=== PATIENT | male | born 1990 | race Caucasian/White ===

== ENCOUNTER 2022-07-08 17:20 | Observation (INO) | payer OTHER, SELFPAY ==
[2022-07-08 17:27] VITALS: BP 134/88; PULSE 94; RESP 20; TEMP 36.5; O2SAT 96
[2022-07-08 18:08] LABS: Add Manual Diff / Slide Review NO; Basophils Absolute Auto 0 /uL (0-100); Basophils Percent Auto 0.8 % (0-2); Eosinophils Absolute Auto 100 /uL (0-450); Eosinophils Percent Auto 2.4 % (2-4); Hematocrit 44.1 % (41-53); Hemoglobin 15.8 g/dL (13.5-17.5); Lymphocytes Absolute Auto 1800 /uL (1100-4500); Lymphocytes Percent Auto 41.1 % (25-40); Mean Corpuscular HGB Conc 35.8 % (30-36); Mean Corpuscular Hemoglobin 29.2 PG (26-34); Mean Corpuscular Volume 81.4 fL (80-100); Monocytes Absolute Auto 300 /uL (0-900); Monocytes Percent Auto 7.5 % (3-14); Neutrophils Absolute Auto 2100 /uL (1500-7000); Neutrophils Percent Auto 48.2 % (50-75); Platelet Count 256 X10^3/uL (150-400); Red Blood Cell Count 5.41 X10^6/uL (4.5-5.9); Red Cell Distribution Width 12.7 % (11.6-14.8); White Blood Cell Count 4.4 X10^3/uL (4.5-11.0)
[2022-07-08 18:13] LABS: Alanine Aminotransferase 29 IU/L (<50); Albumin 4.5 g/dL (3.5-5.0); Albumin Globulin Ratio 1.3 (1.0-2.8); Alkaline Phosphatase 77 U/L (38-126); Aspartate Aminotransferase 40 IU/L (17-59); BUN Creatinine Ratio 21.5 (6-22); Bilirubin Total 0.6 mg/dL (0.2-1.3); Blood Urea Nitrogen 14 mg/dL (9-20); Carbon Dioxide 20 mmol/L (22-32); Chloride 93 mmol/L (98-107); Estimated Glomerular Filt Rate > 60 mL/min (>60); Globulin 3.4 g/dL (1.7-4.1); Lipase 379 U/L (23-300); Potassium 4.4 mmol/L (3.4-5.1); Sodium 131 mmol/L (137-145); Total Protein 7.9 g/dL (6.3-8.2)
[2022-07-08 18:16] LABS: Ketones (Beta-Hydroxybutyrate) 3.13 mmol/L (<0.27)
[2022-07-08 18:19] LABS: Bacteria Urine None Seen; Culture Indicated Urine Cult Not Indicated; RBC Urine None Seen (0-5/HPF); Squamous Epithelial Cell Urine None Seen (0-5/HPF); WBC Urine None Seen (0-5/HPF)
[2022-07-08 18:21] LABS: HEMOLYSIS 71 (0-50)
[2022-07-08 18:22] LABS: Glucose 618 mg/dL (70-100)
[2022-07-08 18:26] LABS: HCO3 VBG 26 mmol/L (23-28); Oxygen Saturation VBG 86 % (70-75); PCO2 VBG 44.9 mmHg (45-50); PO2 VBG 52 mmHg (35-45); Total CO2 VBG 28 mmol/L (24-29); pH VBG 7.38 (7.33-7.43)
[2022-07-08] MEDS: SODIUM CHLORIDE 0.9% 1,000 ML 1000 ML IV ×2 (19:20→22:14)
[2022-07-08 19:34] LABS: Hemoglobin A1C% w Est Avg Glu > 14.0 % (4.0-6.0)
[2022-07-08] MEDS: METFORMIN HCL 500 MG TABLET PO (19:42)
--- NOTE | 2022-07-08 20:14 | ED.RECABL ---
HPI - Recheck/Abnormal Lab/Rx General Chief Complaint: Recheck/Abnormal Lab/Rx Stated Complaint: sent by , lethargic, urine test was bad Time Seen by Provider: 07/08/22 17:47 Source: patient Mode of arrival: Ambulatory History of Present Illness HPI narrative: Patient sent here from the [employer] for evaluation of new onset diabetes. Patient states in the past year has had polyuria and polydipsia. No prior history of diabetes. No recent illness cough cold congestion fever chills. No altered mental status. No nausea vomiting diarrhea. No fever or chills. Related Data Home Medications Medication Instructions Recorded Confirmed pantoprazole 20 mg tablet,delayed 20 mg PO DAILY 07/09/22 07/09/22 release Allergies Allergy/AdvReac Type Severity Reaction Status Date / Time Tussin Allergy Uncoded 07/08/22 17:29 Review of Systems Review of Systems Narrative: GENERAL: Denies chills, fatigue, malaise, fever, sweats. HEENT: Denies sinus pain, ear pain, sore throat RESPIRATORY: Denies dyspnea, cough CARDIOVASCULAR: Denies chest pain, palpitations GASTROINTESTINAL: Denies nausea, vomiting, abdominal pain : Denies dysuria, frequency, hematuria, positive polyuria MUSCULOSKELETAL: denies muscle or bony pain SKIN: Denies rash, skin lesions NEUROLOGIC: Denies weakness, numbness ROS Unobtainable: All systems reviewed & are unremarkable except as noted in HPI and below Patient History Social History household members: none alcohol intake: current Exam Narrative Exam Narrative: GENERAL: in no distress, not toxic not dyspneic HEAD: Normocephalic. EYES: Pupils equal round No scleral icterus. ENT: Mucous membranes moist. NECK: Trachea midline. CARDIOVASCULAR: Regular rate and rhythm without murmurs RESPIRATORY: Clear to auscultation. Breath sounds equal bilaterally. No wheezes, rales, or rhonchi. GASTROINTESTINAL: Abdomen soft, non-tender EXTREMITIES: No gross deformities. BACK: No flank tenderness. NEURO: AOx4. Clear speech. No altered mental status. SKIN: Warm and dry PSYCH: Not anxious, is cooperative Initial Vital Signs Initial Vital Signs: Vital Signs Temperature 97.7 F 07/08/22 17:27 Pulse Rate 94 H 07/08/22 17:27 Respiratory Rate 20 07/08/22 17:27 Blood Pressure 134/88 07/08/22 17:27 Pulse Oximetry 96 07/08/22 17:27 Oxygen Delivery Method 07/08/22 17:27 Course Course Course Narrative: No new issues during course of stay Decision to Admit Date: 07/08/22 Decision to Admit time: 21:56 Orders Ordered: ED Orders 07/08/22 21:15 CMP [Comprehensive Metabolic Panel] Stat 07/08/22 22:11 Blood Culture Urgent 07/08/22 22:12 Education, smoking cessation ONGOING 07/08/22 22:22 Consult to Dietitian, Adult Routine 07/08/22 22:23 Consult to Discharge Planning Routine Consult to Tele-tractor mechanic helper Routine 07/08/22 22:36 COVID19 -Nasal RAPID/Pre-Proc Stat 07/08/22 23:05 CMP [Comprehensive Metabolic Panel] Stat Magnesium Urgent NT-proBNP (BNP-Adult 18+) Urgent Phosphorous Urgent Salicylate Urgent Trop I [Troponin I] Urgent 07/08/22 23:42 Urine Drug Screen, Rapid Urgent 07/09/22 03:15 Complete Blood Count AUTO DIFF DAILY Comprehensive Metabolic Panel DAILY Ketones (Beta-Hydroxybutyrate) Routine Lipid Panel Routine Magnesium DAILY Prothrombin Time INR Routine Trop I [Troponin I] Q6H 07/09/22 11:00 Trop I [Troponin I] Q6H 07/10/22 05:00 Complete Blood Count AUTO DIFF DAILY Comprehensive Metabolic Panel DAILY Magnesium DAILY 07/11/22 05:00 Complete Blood Count AUTO DIFF DAILY Acetaminophen (Acetaminophen 325 Mg Tablet) 650 mg PO Q4HR PRN PRN Reason: Fever/Mild Pain (1-3) Dextrose (Dextrose 50 % In Water 25 Gm/50 Ml Syringe) 25 gm IV PRN PRN PRN Reason: Hypoglycemia Enoxaparin Sodium (Enoxaparin 40 Mg/0.4 Ml Syringe) 40 mg SUBCUT DAILY CECY Fluticasone Propionate (Fluticasone 120 [place]/16 Gm [place].Susp) 1 spray NASAL NOW PRN PRN Reason: Nasal Congestion Stop: 07/12/22 03:28 Last Admin: 07/09/22 03:38 Dose: 1 spray Documented By: MANDI INSULIN DRIP PREMIX (Myxredlin Drip Premix) 100 unit in 100 mls @ 6 mls/hr IV TITRATE CECY; Protocol Last Titration: 07/09/22 00:10 Dose: 0 mls/hr, 0 mls/hr Documented By: MANDI Co-signed By: LAMBERT Admin: 07/08/22 22:03 Dose: 6 mls/hr, 6 mls/hr Documented By: BETSY Co-signed By: YOVANI Sodium Chloride (Normal Saline 0.9%) 1,000 mls @ 100 mls/hr IV CONT CECY Last Admin: 07/09/22 00:22 Dose: Not Given Documented By: MANDI Dextrose (D10w) 1,000 mls @ 150 mls/hr IV CONT [facility] Last Infusion: 07/09/22 01:06 Dose: 0 mls/hr Documented By: Admin: 07/09/22 00:30 Dose: 150 mls/hr Documented By: MANDI Influenza Virus Vaccine (Influenza Vaccine Qiv 0.5 Ml Syringe) 0.5 ml IM .ONCE ONE Stop: 07/10/22 09:01 Insulin Glargine (Insulin Glargine 100 Unit/Ml 3ml Pen) 20 unit SUBCUT BID [facility] Naloxone HCl (Naloxone 0.4 Mg/Ml Vial) 0.2 mg IV Q2MIN PRN PRN Reason: Opiate Reversal Ondansetron HCl (Ondansetron 4 Mg/2 Ml Inj) 4 mg IV Q4HR PRN PRN Reason: Nausea And Vomiting Discontinued Medications Sodium Chloride (Normal Saline 0.9%) 1,000 mls @ 1,000 mls/hr IV BOLUS ONE Stop: 07/08/22 20:09 Last Infusion: 07/08/22 20:19 Dose: 0 mls/hr Documented By: Admin: 07/08/22 19:20 Dose: 1,000 mls/hr Documented By: MICHELLE Sodium Chloride (Normal Saline 0.9%) 1,000 mls @ 1,000 mls/hr IV BOLUS ONE Stop: 07/08/22 23:12 Last Admin: 07/08/22 22:14 Dose: 1,000 mls/hr Documented By: BETSY Insulin Glargine (Insulin Glargine 100 Unit/Ml 3ml Pen) 20 unit SUBCUT BEDTIME ONE Stop: 07/09/22 01:18 Last Admin: 07/09/22 01:36 Dose: 20 unit Documented By: MANDI Co-signed By: LAMBERT Insulin Human Regular (Insulin Regular 100 Unit/Ml 3 Ml Vial) 10 unit IV NOW ONE Stop: 07/08/22 20:17 Last Admin: 07/08/22 20:23 Dose: 10 unit Documented By: BETSY Co-signed By: JACE Lorazepam (Lorazepam 2 Mg/Ml Inj) 0.5 mg IV NOW ONE Stop: 07/08/22 21:54 Last Admin: 07/08/22 21:59 Dose: 0.5 mg Documented By: BETSY Metformin HCl (Metformin Hcl 500 Mg Tablet) 500 mg PO NOW ONE Stop: 07/08/22 19:12 Last Admin: 07/08/22 19:42 Dose: 500 mg Documented By: JACE Potassium Chloride (Potassium Chloride 20 Meq Tab) 20 meq PO NOW ONE Stop: 07/09/22 00:10 Last Admin: 07/09/22 00:29 Dose: 20 meq Documented By: MANDI Potassium Chloride (Potassium Chloride 20 Meq Tab) 40 meq PO NOW ONE Stop: 07/09/22 04:18 Reevaluation(s) Reevaluation #1: Reviewed with patient and agrees for admit for new onset diabetes. We tried medications here to attempt to discharge home however anion gap still high. I did review with hospitalist and explained to patient. He understands need for admit now. Time: 21:56 Consultations Consultation #1: Spoke with hospitalist, Miley Avila, currently anion gap is 18. Must be less than 12 to go home. Recommends repeating CMP/anion gap after 10 units of regular insulin and 1 L normal saline. Patient has received 500 mg of metformin. Time: 20:19 Consultation #2: Spoke with hospitalist, will admit. Anion gap remains at 16. Time: 21:56 Vital Signs Vital signs: Vital Signs - 8 hr 07/08/22 17:27 Temperature 97.7 F Pulse Rate 94 H Respiratory Rate 20 Blood Pressure 134/88 Pulse Oximetry 96 Oxygen Delivery Method Room Air MDM - Recheck/Abnormal Lab/Rx Differential Diagnosis Differential diagnosis: Likely other (New onset diabetes) Lab Data Result diagrams: 07/09/22 03:15 07/09/22 03:15 Labs: Lab Results 07/08/22 07/08/22 07/08/22 Range/Units 17:29 17:47 17:47 WBC 4.4 L (4.5-11.0) X10^3/uL RBC 5.41 (4.5-5.9) X10^6/uL Hgb 15.8 (13.5-17.5) g/dL Hct 44.1 (41-53) % MCV 81.4 (80-100) fL MCH 29.2 (26-34) PG MCHC 35.8 (30-36) % RDW 12.7 (11.6-14.8) % Plt Count 256 (150-400) X10^3/uL Neut % (Auto) 48.2 L (50-75) % Lymph % (Auto) 41.1 H (25-40) % [place] % (Auto) 7.5 (3-14) % Eos % (Auto) 2.4 (2-4) % Baso % (Auto) 0.8 (0-2) % Neut # (Auto) 2100 (8151-3682) /uL Lymph # (Auto) 1800 (6200-5585) /uL [place] # (Auto) 300 (0-900) /uL Eos # (Auto) 100 (0-450) /uL Baso # (Auto) 0 (0-100) /uL VBG pH (7.33-7.43) VBG pCO2 (45-50) mmHg VBG pO2 (35-45) mmHg VBG HCO3 (23-28) mmol/L VBG Total CO2 (24-29) mmol/L VBG O2 Saturation (70-75) % VBG Base Excess (0-4) mmol/L Sodium 131 L (137-145) mmol/L Potassium 4.4 (3.4-5.1) mmol/L Chloride 93 L (98-107) mmol/L Carbon Dioxide 20 L (22-32) mmol/L BUN 14 (9-20) mg/dL Creatinine 0.65 L (0.66-1.25) mg/dL Estimated GFR > 60 (>60) mL/min BUN/Creatinine Ratio 21.5 (6-22) Glucose 618 H* (70-100) mg/dL Hemoglobin A1c > 14.0 H (4.0-6.0) % Calcium 9.0 (8.4-10.2) mg/dL Phosphorus (2.5-4.5) mg/dL Magnesium (1.6-2.3) mg/dL Total Bilirubin 0.6 (0.2-1.3) mg/dL AST 40 (17-59) IU/L ALT 29 (<50) IU/L Alkaline Phosphatase 77 (38-126) U/L Troponin I (0.01-0.034) ng/mL NT-Pro-B Natriuret Pep (<125) pg/mL Total Protein 7.9 (6.3-8.2) g/dL Albumin 4.5 (3.5-5.0) g/dL Globulin 3.4 (1.7-4.1) g/dL Albumin/Globulin Ratio 1.3 (1.0-2.8) Lipase 379 H (23-300) U/L Urine RBC (0-5/HPF) Urine WBC (0-5/HPF) Ur Squamous Epith Cells (0-5/HPF) Urine Bacteria (None) Ur Culture Indicated? Salicylates (<20) mg/dL U Opiates 300ng/mL cut (Negative) Ur Oxycodone Screen (Negative) Urine Methadone Screen (Negative) Ur Barbiturates Screen (Negative) U Tricyclic Antidepress (Negative) Ur Phencyclidine Scrn (Negative) Ur Amphetamines Screen (Negative) U Methamphetamines Scrn (Negative) Ur MDMA Scrn (Ecstasy) (Negative) U Benzodiazepines Scrn (Negative) Urine Cocaine Screen (Negative) U Marijuana (THC) Screen (Negative) Ketones 3.13 H (<0.27) mmol/L SARS-CoV-2 (PCR) (Negative) 07/08/22 07/08/22 07/08/22 Range/Units 17:50 18:06 21:15 WBC (4.5-11.0) X10^3/uL RBC (4.5-5.9) X10^6/uL Hgb (13.5-17.5) g/dL Hct (41-53) % MCV (80-100) fL MCH (26-34) PG MCHC (30-36) % RDW (11.6-14.8) % Plt Count (150-400) X10^3/uL Neut % (Auto) (50-75) % Lymph % (Auto) (25-40) % [place] % (Auto) (3-14) % Eos % (Auto) (2-4) % Baso % (Auto) (0-2) % Neut # (Auto) (4828-0456) /uL Lymph # (Auto) (8035-2943) /uL [place] # (Auto) (0-900) /uL Eos # (Auto) (0-450) /uL Baso # (Auto) (0-100) /uL VBG pH 7.38 (7.33-7.43) VBG pCO2 44.9 L (45-50) mmHg VBG pO2 52 H (35-45) mmHg VBG HCO3 26 (23-28) mmol/L VBG Total CO2 28 (24-29) mmol/L VBG O2 Saturation 86 H (70-75) % VBG Base Excess 1.0 (0-4) mmol/L Sodium 135 L (137-145) mmol/L Potassium 4.2 (3.4-5.1) mmol/L Chloride 97 L (98-107) mmol/L Carbon Dioxide 22 (22-32) mmol/L BUN 13 (9-20) mg/dL Creatinine 0.64 L (0.66-1.25) mg/dL Estimated GFR > 60 (>60) mL/min BUN/Creatinine Ratio 20.3 (6-22) Glucose 487 H* (70-100) mg/dL Hemoglobin A1c (4.0-6.0) % Calcium 8.7 (8.4-10.2) mg/dL Phosphorus (2.5-4.5) mg/dL Magnesium (1.6-2.3) mg/dL Total Bilirubin 0.8 (0.2-1.3) mg/dL AST 41 (17-59) IU/L ALT 29 (<50) IU/L Alkaline Phosphatase 64 (38-126) U/L Troponin I (0.01-0.034) ng/mL NT-Pro-B Natriuret Pep (<125) pg/mL Total Protein 7.8 (6.3-8.2) g/dL Albumin 4.4 (3.5-5.0) g/dL Globulin 3.4 (1.7-4.1) g/dL Albumin/Globulin Ratio 1.3 (1.0-2.8) Lipase (23-300) U/L Urine RBC None seen (0-5/HPF) Urine WBC None seen (0-5/HPF) Ur Squamous Epith Cells None seen (0-5/HPF) Urine Bacteria None seen (None) Ur Culture Indicated? Cult not indicated Salicylates (<20) mg/dL U Opiates 300ng/mL cut (Negative) Ur Oxycodone Screen (Negative) Urine Methadone Screen (Negative) Ur Barbiturates Screen (Negative) U Tricyclic Antidepress (Negative) Ur Phencyclidine Scrn (Negative) Ur Amphetamines Screen (Negative) U Methamphetamines Scrn (Negative) Ur MDMA Scrn (Ecstasy) (Negative) U Benzodiazepines Scrn (Negative) Urine Cocaine Screen (Negative) U Marijuana (THC) Screen (Negative) Ketones (<0.27) mmol/L SARS-CoV-2 (PCR) (Negative) 07/08/22 07/08/22 07/08/22 Range/Units 22:36 23:05 23:05 WBC (4.5-11.0) X10^3/uL RBC (4.5-5.9) X10^6/uL Hgb (13.5-17.5) g/dL Hct (41-53) % MCV (80-100) fL MCH (26-34) PG MCHC (30-36) % RDW (11.6-14.8) % Plt Count (150-400) X10^3/uL Neut % (Auto) (50-75) % Lymph % (Auto) (25-40) % [place] % (Auto) (3-14) % Eos % (Auto) (2-4) % Baso % (Auto) (0-2) % Neut # (Auto) (0589-7478) /uL Lymph # (Auto) (9428-3790) /uL [place] # (Auto) (0-900) /uL Eos # (Auto) (0-450) /uL Baso # (Auto) (0-100) /uL VBG pH (7.33-7.43) VBG pCO2 (45-50) mmHg VBG pO2 (35-45) mmHg VBG HCO3 (23-28) mmol/L VBG Total CO2 (24-29) mmol/L VBG O2 Saturation (70-75) % VBG Base Excess (0-4) mmol/L Sodium (137-145) mmol/L Potassium (3.4-5.1) mmol/L Chloride (98-107) mmol/L Carbon Dioxide (22-32) mmol/L BUN (9-20) mg/dL Creatinine (0.66-1.25) mg/dL Estimated GFR (>60) mL/min BUN/Creatinine Ratio (6-22) Glucose (70-100) mg/dL Hemoglobin A1c (4.0-6.0) % Calcium (8.4-10.2) mg/dL Phosphorus (2.5-4.5) mg/dL Magnesium 1.9 (1.6-2.3) mg/dL Total Bilirubin (0.2-1.3) mg/dL AST (17-59) IU/L ALT (<50) IU/L Alkaline Phosphatase (38-126) U/L Troponin I (0.01-0.034) ng/mL NT-Pro-B Natriuret Pep (<125) pg/mL Total Protein (6.3-8.2) g/dL Albumin (3.5-5.0) g/dL Globulin (1.7-4.1) g/dL Albumin/Globulin Ratio (1.0-2.8) Lipase (23-300) U/L Urine RBC (0-5/HPF) Urine WBC (0-5/HPF) Ur Squamous Epith Cells (0-5/HPF) Urine Bacteria (None) Ur Culture Indicated? Salicylates < 1.0 (<20) mg/dL U Opiates 300ng/mL cut (Negative) Ur Oxycodone Screen (Negative) Urine Methadone Screen (Negative) Ur Barbiturates Screen (Negative) U Tricyclic Antidepress (Negative) Ur Phencyclidine Scrn (Negative) Ur Amphetamines Screen (Negative) U Methamphetamines Scrn (Negative) Ur MDMA Scrn (Ecstasy) (Negative) U Benzodiazepines Scrn (Negative) Urine Cocaine Screen (Negative) U Marijuana (THC) Screen (Negative) Ketones (<0.27) mmol/L SARS-CoV-2 (PCR) Negative (Negative) 07/08/22 07/08/22 07/08/22 Range/Units 23:05 23:05 23:05 WBC (4.5-11.0) X10^3/uL RBC (4.5-5.9) X10^6/uL Hgb (13.5-17.5) g/dL Hct (41-53) % MCV (80-100) fL MCH (26-34) PG MCHC (30-36) % RDW (11.6-14.8) % Plt Count (150-400) X10^3/uL Neut % (Auto) (50-75) % Lymph % (Auto) (25-40) % [place] % (Auto) (3-14) % Eos % (Auto) (2-4) % Baso % (Auto) (0-2) % Neut # (Auto) (2483-6272) /uL Lymph # (Auto) (5020-1343) /uL [place] # (Auto) (0-900) /uL Eos # (Auto) (0-450) /uL Baso # (Auto) (0-100) /uL VBG pH (7.33-7.43) VBG pCO2 (45-50) mmHg VBG pO2 (35-45) mmHg VBG HCO3 (23-28) mmol/L VBG Total CO2 (24-29) mmol/L VBG O2 Saturation (70-75) % VBG Base Excess (0-4) mmol/L Sodium (137-145) mmol/L Potassium (3.4-5.1) mmol/L Chloride (98-107) mmol/L Carbon Dioxide (22-32) mmol/L BUN (9-20) mg/dL Creatinine (0.66-1.25) mg/dL Estimated GFR (>60) mL/min BUN/Creatinine Ratio (6-22) Glucose (70-100) mg/dL Hemoglobin A1c (4.0-6.0) % Calcium (8.4-10.2) mg/dL Phosphorus 3.2 (2.5-4.5) mg/dL Magnesium (1.6-2.3) mg/dL Total Bilirubin (0.2-1.3) mg/dL AST (17-59) IU/L ALT (<50) IU/L Alkaline Phosphatase (38-126) U/L Troponin I 0.016 (0.01-0.034) ng/mL NT-Pro-B Natriuret Pep 15 (<125) pg/mL Total Protein (6.3-8.2) g/dL Albumin (3.5-5.0) g/dL Globulin (1.7-4.1) g/dL Albumin/Globulin Ratio (1.0-2.8) Lipase (23-300) U/L Urine RBC (0-5/HPF) Urine WBC (0-5/HPF) Ur Squamous Epith Cells (0-5/HPF) Urine Bacteria (None) Ur Culture Indicated? Salicylates (<20) mg/dL U Opiates 300ng/mL cut (Negative) Ur Oxycodone Screen (Negative) Urine Methadone Screen (Negative) Ur Barbiturates Screen (Negative) U Tricyclic Antidepress (Negative) Ur Phencyclidine Scrn (Negative) Ur Amphetamines Screen (Negative) U Methamphetamines Scrn (Negative) Ur MDMA Scrn (Ecstasy) (Negative) U Benzodiazepines Scrn (Negative) Urine Cocaine Screen (Negative) U Marijuana (THC) Screen (Negative) Ketones (<0.27) mmol/L SARS-CoV-2 (PCR) (Negative) 07/08/22 07/08/22 Range/Units 23:05 23:42 WBC (4.5-11.0) X10^3/uL RBC (4.5-5.9) X10^6/uL Hgb (13.5-17.5) g/dL Hct (41-53) % MCV (80-100) fL MCH (26-34) PG MCHC (30-36) % RDW (11.6-14.8) % Plt Count (150-400) X10^3/uL Neut % (Auto) (50-75) % Lymph % (Auto) (25-40) % [place] % (Auto) (3-14) % Eos % (Auto) (2-4) % Baso % (Auto) (0-2) % Neut # (Auto) (1731-3528) /uL Lymph # (Auto) (7016-8122) /uL [place] # (Auto) (0-900) /uL Eos # (Auto) (0-450) /uL Baso # (Auto) (0-100) /uL VBG pH (7.33-7.43) VBG pCO2 (45-50) mmHg VBG pO2 (35-45) mmHg VBG HCO3 (23-28) mmol/L VBG Total CO2 (24-29) mmol/L VBG O2 Saturation (70-75) % VBG Base Excess (0-4) mmol/L Sodium 138 (137-145) mmol/L Potassium 3.7 (3.4-5.1) mmol/L Chloride 102 (98-107) mmol/L Carbon Dioxide 25 (22-32) mmol/L BUN 11 (9-20) mg/dL Creatinine 0.59 L (0.66-1.25) mg/dL Estimated GFR > 60 (>60) mL/min BUN/Creatinine Ratio 18.6 (6-22) Glucose 227 H D (70-100) mg/dL Hemoglobin A1c (4.0-6.0) % Calcium 8.5 (8.4-10.2) mg/dL Phosphorus (2.5-4.5) mg/dL Magnesium (1.6-2.3) mg/dL Total Bilirubin 0.5 (0.2-1.3) mg/dL AST 36 (17-59) IU/L ALT 25 (<50) IU/L Alkaline Phosphatase 55 (38-126) U/L Troponin I (0.01-0.034) ng/mL NT-Pro-B Natriuret Pep (<125) pg/mL Total Protein 7.1 (6.3-8.2) g/dL Albumin 4.0 (3.5-5.0) g/dL Globulin 3.1 (1.7-4.1) g/dL Albumin/Globulin Ratio 1.3 (1.0-2.8) Lipase (23-300) U/L Urine RBC (0-5/HPF) Urine WBC (0-5/HPF) Ur Squamous Epith Cells (0-5/HPF) Urine Bacteria (None) Ur Culture Indicated? Salicylates (<20) mg/dL U Opiates 300ng/mL cut Negative (Negative) Ur Oxycodone Screen Negative (Negative) Urine Methadone Screen Negative (Negative) Ur Barbiturates Screen Negative (Negative) U Tricyclic Antidepress Negative (Negative) Ur Phencyclidine Scrn Negative (Negative) Ur Amphetamines Screen Negative (Negative) U Methamphetamines Scrn Negative (Negative) Ur MDMA Scrn (Ecstasy) Negative (Negative) U Benzodiazepines Scrn Negative (Negative) Urine Cocaine Screen Negative (Negative) U Marijuana (THC) Screen Negative (Negative) Ketones (<0.27) mmol/L SARS-CoV-2 (PCR) (Negative) Point of Care Testing Glucose POC 97 Urine Dip Bedside Urine Glucose 1000 mg/dl Bedside Urine Bilirubin - Negative Bedside Urine Ketone +++ 80 Urine Specific [place] 1.010 Bedside Urine Occult Blood - Negative Bedside Urine pH 6.0 Bedside Urine Protein - Negative Bedside Urine Urobilinogen - Negative Bedside Urine Nitrite - Negative Bedside Urine Leukocytes - Negative Esterase MDM Narrative Medical decision making narrative: Appropriate for admission for new onset diabetes. Anion gap remains high despite treatment in the emergency department. Reviewed patient and hospitalist agreed for admit. Insulin drip started here. Critical Care Time Critical Care Time Attestation: Critical Care Time 35 minutes: Critical care time is separate from other billable procedures. This critical care time includes consultation with patient and other consulting doctors, review of records, and interpretation of data from labs, response to treatment, examination of patient etc. Discharge Plan Departure Patient Disposition: Admitted as Observation Clinical Impression: Diabetes mellitus, new onset Admit Date/Time: 07/08/22 23:43 Admit Provider: Miley Avila
[2022-07-08] MEDS: INSULIN REGULAR 100 UNIT/ML 3 ML VIAL 10 UNIT IV (20:23)
[2022-07-08 21:29] LABS: Alanine Aminotransferase 29 IU/L (<50); Albumin 4.4 g/dL (3.5-5.0); Albumin Globulin Ratio 1.3 (1.0-2.8); Alkaline Phosphatase 64 U/L (38-126); Aspartate Aminotransferase 41 IU/L (17-59); BUN Creatinine Ratio 20.3 (6-22); Bilirubin Total 0.8 mg/dL (0.2-1.3); Blood Urea Nitrogen 13 mg/dL (9-20); Calcium 8.7 mg/dL (8.4-10.2); Carbon Dioxide 22 mmol/L (22-32); Chloride 97 mmol/L (98-107); Estimated Glomerular Filt Rate > 60 mL/min (>60); Globulin 3.4 g/dL (1.7-4.1); Total Protein 7.8 g/dL (6.3-8.2)
[2022-07-08 21:34] LABS: HEMOLYSIS 107 (0-50)
[2022-07-08 21:36] LABS: Sodium 135 mmol/L (137-145)
[2022-07-08 21:37] LABS: Glucose 487 mg/dL (70-100)
[2022-07-08 21:38] LABS: Potassium 4.2 mmol/L (3.4-5.1)
[2022-07-08] MEDS: LORazepam 2 MG/ML INJ 0.5 MG IV (21:59)
[2022-07-08] MEDS: INSULIN DRIP PREMIX 100 UNIT/100 ML PLAST..BAG 6 UNIT IV (22:03)
[2022-07-08 23:00] LABS: COVID19 -Nasal RAPID Negative (Negative)
[2022-07-08 23:33] LABS: Magnesium 1.9 mg/dL (1.6-2.3); Phosphorous 3.2 mg/dL (2.5-4.5); Salicylate < 1.0 mg/dL (<20)
[2022-07-08 23:35] LABS: Alanine Aminotransferase 25 IU/L (<50); Albumin Globulin Ratio 1.3 (1.0-2.8); Alkaline Phosphatase 55 U/L (38-126); Aspartate Aminotransferase 36 IU/L (17-59); BUN Creatinine Ratio 18.6 (6-22); Bilirubin Total 0.5 mg/dL (0.2-1.3); Blood Urea Nitrogen 11 mg/dL (9-20); Calcium 8.5 mg/dL (8.4-10.2); Carbon Dioxide 25 mmol/L (22-32); Chloride 102 mmol/L (98-107); Estimated Glomerular Filt Rate > 60 mL/min (>60); Globulin 3.1 g/dL (1.7-4.1); Glucose 227 mg/dL (70-100); Potassium 3.7 mmol/L (3.4-5.1); Sodium 138 mmol/L (137-145); Total Protein 7.1 g/dL (6.3-8.2)
[2022-07-08 23:37] LABS: HEMOLYSIS 55 (0-50)
[2022-07-08 23:46] LABS: Troponin I 0.016 ng/mL (0.01-0.034)
[2022-07-08 23:54] LABS: NT-proBNP (BNP-Adult 18+) 15 pg/mL (<125)
[2022-07-09 00:04] LABS: UR Morphine/Opiate cutoff 300 Negative (Negative); Ur Creatinine 20 (Normal); Ur Specific Gravity 1.025 (Normal); Urine Amphetamines Negative (Negative); Urine Barbiturates Negative (Negative); Urine Benzodiazepines Negative (Negative); Urine Cocaine Negative (Negative); Urine MDMA Negative (Negative); Urine Methadone Negative (Negative); Urine Methamphetamines Negative (Negative); Urine Oxycodone Negative (Negative); Urine Phencyclidine Negative (Negative); Urine Tetrahydrocannabinol Negative (Negative); Urine Tricyclic Antidepressant Negative (Negative); Urine pH 5 (Normal)
[2022-07-09 00:15] VITALS: BP 120/83; PULSE 91; RESP 19; TEMP 36.4; O2SAT 97
[2022-07-09 00:21] VITALS: BP 109/69; PULSE 72; RESP 20; O2SAT 99
[2022-07-09] MEDS: POTASSIUM CHLORIDE 20 MEQ TAB PO (00:29)
[2022-07-09] MEDS: DEXTROSE 10 % IN WATER 1,000 ML 150 ML IV (00:30)
--- NOTE | 2022-07-09 00:30 | PC.NURSE ---
Patient admitted to ICU 226 for DKA management. On arrival, patient's BG 97. Insulin ggt turned off. VSS. Able to answer all admission questions. 20 PO K given. Consecutive BG after admission were in 90's. COMBUSTION ANALYST [place] made aware. 20 units lantus given. Call light at bedside.
[2022-07-09 00:35] VITALS: BMI 28.5
[2022-07-09 01:07] VITALS: BP 129/75; PULSE 95; RESP 34; O2SAT 97
[2022-07-09] MEDS: INSULIN GLARGINE 100 UNIT/ML 3ML PEN 20 UNIT SUBCUT ×2 (01:36→08:23)
[2022-07-09] MEDS: FLUTICASONE 120 SPRAY/16 GM SPRAY.SUSP NASAL (03:38)
[2022-07-09 03:52] LABS: Add Manual Diff / Slide Review NO; Basophils Absolute Auto 0 /uL (0-100); Basophils Percent Auto 0.6 % (0-2); Eosinophils Absolute Auto 100 /uL (0-450); Eosinophils Percent Auto 2.7 % (2-4); Hematocrit 38.5 % (41-53); Hemoglobin 13.3 g/dL (13.5-17.5); Lymphocytes Absolute Auto 2000 /uL (1100-4500); Lymphocytes Percent Auto 43.8 % (25-40); Mean Corpuscular HGB Conc 34.4 % (30-36); Mean Corpuscular Hemoglobin 27.6 PG (26-34); Mean Corpuscular Volume 80.2 fL (80-100); Monocytes Absolute Auto 400 /uL (0-900); Monocytes Percent Auto 8.3 % (3-14); Neutrophils Absolute Auto 2100 /uL (1500-7000); Neutrophils Percent Auto 44.6 % (50-75); Platelet Count 205 X10^3/uL (150-400); White Blood Cell Count 4.6 X10^3/uL (4.5-11.0)
[2022-07-09 03:53] LABS: INR 0.9 (0.9-1.3); Prothrombin Time 10.5 SECONDS (10.1-12.7)
[2022-07-09 03:59] LABS: Alanine Aminotransferase 24 IU/L (<50); Albumin 3.7 g/dL (3.5-5.0); Albumin Globulin Ratio 1.3 (1.0-2.8); Alkaline Phosphatase 50 U/L (38-126); Aspartate Aminotransferase 32 IU/L (17-59); BUN Creatinine Ratio 23.1 (6-22); Bilirubin Total 0.3 mg/dL (0.2-1.3); Blood Urea Nitrogen 12 mg/dL (9-20); Calcium 8.5 mg/dL (8.4-10.2); Carbon Dioxide 26 mmol/L (22-32); Chloride 100 mmol/L (98-107); Cholesterol 260 mg/dL (140-199); Estimated Glomerular Filt Rate > 60 mL/min (>60); Globulin 2.9 g/dL (1.7-4.1); Glucose 182 mg/dL (70-100); HDL Cholesterol 24 mg/dL (40-60); HEMOLYSIS 22 (0-50); Magnesium 1.9 mg/dL (1.6-2.3); Potassium 3.2 mmol/L (3.4-5.1); Sodium 135 mmol/L (137-145); Total Protein 6.6 g/dL (6.3-8.2)
[2022-07-09 04:00] VITALS: BP 108/64; PULSE 90; RESP 15; TEMP 36.3; O2SAT 97
[2022-07-09 04:02] LABS: Ketones (Beta-Hydroxybutyrate) 1.46 mmol/L (<0.27)
[2022-07-09 04:08] LABS: Triglycerides 1116 mg/dL (35-150)
[2022-07-09 04:13] LABS: Troponin I < 0.012 ng/mL (0.01-0.034)
[2022-07-09 04:32] LABS: TSH w/ Reflex to FT4 3.19 uIU/mL (0.47-4.68)
[2022-07-09] MEDS: POTASSIUM CHLORIDE 20 MEQ TAB 40 MEQ PO ×2 (05:18→08:24)
[2022-07-09] MEDS: ACETAMINOPHEN 325 MG TABLET 650 MG PO (05:28)
--- NOTE | 2022-07-09 05:36 | PM.HP.1 ---
History of Present Illness History of Present Illness Date Patient Seen: 07/08/22 Time Patient Seen: 22:34 Chief complaint: sent by MD, lethargic, urine test was bad Narrative: Miguel Ángel Segovia is a 32-year-old male with a history of GERD, sent to ED from the [employer] [facility] for evaluation of new onset diabetes.? Patient states in the past year has had polyuria, polydipsia, fatigue, nocturia 3-4 times, weight loss of 20 lb with exercise intentional..? No prior history of diabetes.? No recent illness cough cold congestion fever chills.? No altered mental status.? No nausea vomiting diarrhea.? No fever or chills, body aches, denies chest pain, shortness breast, hematemesis, hematuria, changes in bowel, headache, changes in vision, weakness. Patient states that he works nights in the [employer] endorses drinking 2 sodas per night, an approximately 6-8 glasses of whiskey per week, a smoker times 16 years recently changed to vaping, has never had any previous medical issues other than sinus surgery and tonsillectomy, takes only [id number] PPI for GERD. Patient's vitals upon admit were stable temp 97.7?, BP 134/88, HR 94, R 20, O2 saturation 96% on room air. Patient's ABGs pH 7.38, pCO2 44.9, 0252, bicarb 26, CO2 28, O2 86, base excess 1.0. Patient's CBC was WNL, sodium 135, chloride 97, creatinine 0.64, initial glucose 639, A1c> 14%, ketones 3.13, lipase 379, UA was negative, initial anion gap 18. Patient was in no acute distress and was stable admitted for new onset diabetes DKA. Patient History Medical History (Updated 07/09/22 @ 05:42 by JOSTIN Rosado) GERD (gastroesophageal reflux disease) Surgical History (Updated 07/09/22 @ 05:42 by JOSTIN Rosado) History of sinus surgery History of tonsillectomy Family & Social History Family History Mother Liver failure Aunt Cancer Social History: household members none Prior Living Arrangements Apartment/Condo Safety & Behavioral: Feels Safe in Current Yes Environment Been Physically Hurt or No Threatened By a Person Tobacco & Substance use: Tobacco type e-cigarettes times 16 years-was a pack-a-day smoker now vaping alcohol intake current alcohol intake frequency 6-8 small glasses of whiskey per week Meds Home Medications and Allergies Home Medications Medication Instructions Recorded Confirmed Type pantoprazole 20 mg tablet,delayed 20 mg PO DAILY 07/09/22 07/09/22 History release Allergies Allergy/AdvReac Type Severity Reaction Status Date / Time Tussin Allergy Uncoded 07/08/22 17:29 Review of Systems Review of Systems Narrative: All 12 point systems reviewed with the patient and are negative except otherwise documented. Exam Vital Signs (past 8 hours): - 07/09/22 00:21 07/09/22 01:07 07/09/22 00:15 Temperature 97.5 F L Pulse Rate 72 95 H 91 H Respiratory Rate 20 34 H 19 Blood Pressure 109/69 129/75 120/83 Pulse Oximetry 99 97 97 Oxygen Delivery Method Room Air 07/09/22 00:30 07/09/22 04:00 Temperature 97.3 F L Pulse Rate 90 Respiratory Rate 15 Blood Pressure 108/64 Pulse Oximetry 97 Oxygen Delivery Method Room Air Oxygen Delivery Method Room Air Narrative Exam Narrative: General: Patient is a well-developed, well-nourished in no distress at this time. HEENT: Normocephalic, atraumatic, extraocular muscles intact, oral pharynx is clear and mucous membranes are moist. Neck is supple and symmetric, trachea is midline, no adenopathy, no thyroid enlargement, nontender, no masses palpated. Negative for JVD Chest: Normal AP diameter and contour without kyphoscoliosis, no nasal flaring, retractions, or tachypneic labored Lungs: Auscultation of all lung wu are clear without adventitious sounds, wheezes, rhonchi, or rales. Cardio: S1 & S2 with regular rate and rhythm without murmur, rubs, or gallops, no carotid bruit, no cardiac pulsations present. Abdomen: Soft nontender, negative for organomegaly, or masses. Bowel sounds are present in all 4 quadrants without guarding or rebound, no CVA tenderness. Musculoskeletal: Muscle strength and tone are equal within normal limits, no deformity, crepitus, effusions, cyanosis, clubbing or edema present. Full range of motion intact radial and pedal pulses are normal. Skin: Warm dry and intact without rashes, ulcerations or petechiae. Neuro: Alert and orientated x3, strength is +5/5 in all extremities, sensation to touch intact, no gross deficits noted of cranial nerves. Psych: Patient has a well-kept appearance, appropriate affect, mental status attitude thought context and judgment are appropriate for age. Objective Labs Result Diagrams: 07/09/22 03:15 07/09/22 03:15 Labs: Laboratory Results - last 24 hr 07/08/22 07/08/22 07/08/22 17:29 17:47 17:47 WBC 4.4 L RBC 5.41 Hgb 15.8 Hct 44.1 MCV 81.4 MCH 29.2 MCHC 35.8 RDW 12.7 Plt Count 256 Neut % (Auto) 48.2 L Lymph % (Auto) 41.1 H Redwood % (Auto) 7.5 Eos % (Auto) 2.4 Baso % (Auto) 0.8 Neut # (Auto) 2100 Lymph # (Auto) 1800 Redwood # (Auto) 300 Eos # (Auto) 100 Baso # (Auto) 0 PT INR VBG pH VBG pCO2 VBG pO2 VBG HCO3 VBG Total CO2 VBG O2 Saturation VBG Base Excess Sodium 131 L Potassium 4.4 Chloride 93 L Carbon Dioxide 20 L BUN 14 Creatinine 0.65 L Estimated GFR > 60 BUN/Creatinine Ratio 21.5 Glucose 618 H* Hemoglobin A1c > 14.0 H Calcium 9.0 Phosphorus Magnesium Total Bilirubin 0.6 AST 40 ALT 29 Alkaline Phosphatase 77 Troponin I NT-Pro-B Natriuret Pep Total Protein 7.9 Albumin 4.5 Globulin 3.4 Albumin/Globulin Ratio 1.3 Triglycerides Cholesterol LDL Cholesterol, Calc HDL Cholesterol Lipase 379 H TSH Urine RBC Urine WBC Ur Squamous Epith Cells Urine Bacteria Ur Culture Indicated? Nasal Screen MRSA (PCR) Salicylates U Opiates 300ng/mL cut Ur Oxycodone Screen Urine Methadone Screen Ur Barbiturates Screen U Tricyclic Antidepress Ur Phencyclidine Scrn Ur Amphetamines Screen U Methamphetamines Scrn Ur MDMA Scrn (Ecstasy) U Benzodiazepines Scrn Urine Cocaine Screen U Marijuana (THC) Screen Ketones 3.13 H SARS-CoV-2 (PCR) 07/08/22 07/08/22 07/08/22 17:50 18:06 21:15 WBC RBC Hgb Hct MCV MCH MCHC RDW Plt Count Neut % (Auto) Lymph % (Auto) Redwood % (Auto) Eos % (Auto) Baso % (Auto) Neut # (Auto) Lymph # (Auto) Redwood # (Auto) Eos # (Auto) Baso # (Auto) PT INR VBG pH 7.38 VBG pCO2 44.9 L VBG pO2 52 H VBG HCO3 26 VBG Total CO2 28 VBG O2 Saturation 86 H VBG Base Excess 1.0 Sodium 135 L Potassium 4.2 Chloride 97 L Carbon Dioxide 22 BUN 13 Creatinine 0.64 L Estimated GFR > 60 BUN/Creatinine Ratio 20.3 Glucose 487 H* Hemoglobin A1c Calcium 8.7 Phosphorus Magnesium Total Bilirubin 0.8 AST 41 ALT 29 Alkaline Phosphatase 64 Troponin I NT-Pro-B Natriuret Pep Total Protein 7.8 Albumin 4.4 Globulin 3.4 Albumin/Globulin Ratio 1.3 Triglycerides Cholesterol LDL Cholesterol, Calc HDL Cholesterol Lipase TSH Urine RBC None seen Urine WBC None seen Ur Squamous Epith Cells None seen Urine Bacteria None seen Ur Culture Indicated? Cult not indicated Nasal Screen MRSA (PCR) Salicylates U Opiates 300ng/mL cut Ur Oxycodone Screen Urine Methadone Screen Ur Barbiturates Screen U Tricyclic Antidepress Ur Phencyclidine Scrn Ur Amphetamines Screen U Methamphetamines Scrn Ur MDMA Scrn (Ecstasy) U Benzodiazepines Scrn Urine Cocaine Screen U Marijuana (THC) Screen Ketones SARS-CoV-2 (PCR) 07/08/22 07/08/22 07/08/22 22:36 23:05 23:05 WBC RBC Hgb Hct MCV MCH MCHC RDW Plt Count Neut % (Auto) Lymph % (Auto) Redwood % (Auto) Eos % (Auto) Baso % (Auto) Neut # (Auto) Lymph # (Auto) Redwood # (Auto) Eos # (Auto) Baso # (Auto) PT INR VBG pH VBG pCO2 VBG pO2 VBG HCO3 VBG Total CO2 VBG O2 Saturation VBG Base Excess Sodium Potassium Chloride Carbon Dioxide BUN Creatinine Estimated GFR BUN/Creatinine Ratio Glucose Hemoglobin A1c Calcium Phosphorus Magnesium 1.9 Total Bilirubin AST ALT Alkaline Phosphatase Troponin I NT-Pro-B Natriuret Pep Total Protein Albumin Globulin Albumin/Globulin Ratio Triglycerides Cholesterol LDL Cholesterol, Calc HDL Cholesterol Lipase TSH Urine RBC Urine WBC Ur Squamous Epith Cells Urine Bacteria Ur Culture Indicated? Nasal Screen MRSA (PCR) Salicylates < 1.0 U Opiates 300ng/mL cut Ur Oxycodone Screen Urine Methadone Screen Ur Barbiturates Screen U Tricyclic Antidepress Ur Phencyclidine Scrn Ur Amphetamines Screen U Methamphetamines Scrn Ur MDMA Scrn (Ecstasy) U Benzodiazepines Scrn Urine Cocaine Screen U Marijuana (THC) Screen Ketones SARS-CoV-2 (PCR) Negative 07/08/22 07/08/22 07/08/22 23:05 23:05 23:05 WBC RBC Hgb Hct MCV MCH MCHC RDW Plt Count Neut % (Auto) Lymph % (Auto) Redwood % (Auto) Eos % (Auto) Baso % (Auto) Neut # (Auto) Lymph # (Auto) Redwood # (Auto) Eos # (Auto) Baso # (Auto) PT INR VBG pH VBG pCO2 VBG pO2 VBG HCO3 VBG Total CO2 VBG O2 Saturation VBG Base Excess Sodium Potassium Chloride Carbon Dioxide BUN Creatinine Estimated GFR BUN/Creatinine Ratio Glucose Hemoglobin A1c Calcium Phosphorus 3.2 Magnesium Total Bilirubin AST ALT Alkaline Phosphatase Troponin I 0.016 NT-Pro-B Natriuret Pep 15 Total Protein Albumin Globulin Albumin/Globulin Ratio Triglycerides Cholesterol LDL Cholesterol, Calc HDL Cholesterol Lipase TSH Urine RBC Urine WBC Ur Squamous Epith Cells Urine Bacteria Ur Culture Indicated? Nasal Screen MRSA (PCR) Salicylates U Opiates 300ng/mL cut Ur Oxycodone Screen Urine Methadone Screen Ur Barbiturates Screen U Tricyclic Antidepress Ur Phencyclidine Scrn Ur Amphetamines Screen U Methamphetamines Scrn Ur MDMA Scrn (Ecstasy) U Benzodiazepines Scrn Urine Cocaine Screen U Marijuana (THC) Screen Ketones SARS-CoV-2 (PCR) 07/08/22 07/08/22 07/09/22 23:05 23:42 00:30 WBC RBC Hgb Hct MCV MCH MCHC RDW Plt Count Neut % (Auto) Lymph % (Auto) Redwood % (Auto) Eos % (Auto) Baso % (Auto) Neut # (Auto) Lymph # (Auto) Redwood # (Auto) Eos # (Auto) Baso # (Auto) PT INR VBG pH VBG pCO2 VBG pO2 VBG HCO3 VBG Total CO2 VBG O2 Saturation VBG Base Excess Sodium 138 Potassium 3.7 Chloride 102 Carbon Dioxide 25 BUN 11 Creatinine 0.59 L Estimated GFR > 60 BUN/Creatinine Ratio 18.6 Glucose 227 H D Hemoglobin A1c Calcium 8.5 Phosphorus Magnesium Total Bilirubin 0.5 AST 36 ALT 25 Alkaline Phosphatase 55 Troponin I NT-Pro-B Natriuret Pep Total Protein 7.1 Albumin 4.0 Globulin 3.1 Albumin/Globulin Ratio 1.3 Triglycerides Cholesterol LDL Cholesterol, Calc HDL Cholesterol Lipase TSH Urine RBC Urine WBC Ur Squamous Epith Cells Urine Bacteria Ur Culture Indicated? Nasal Screen MRSA (PCR) Negative for mrsa Salicylates U Opiates 300ng/mL cut Negative Ur Oxycodone Screen Negative Urine Methadone Screen Negative Ur Barbiturates Screen Negative U Tricyclic Antidepress Negative Ur Phencyclidine Scrn Negative Ur Amphetamines Screen Negative U Methamphetamines Scrn Negative Ur MDMA Scrn (Ecstasy) Negative U Benzodiazepines Scrn Negative Urine Cocaine Screen Negative U Marijuana (THC) Screen Negative Ketones SARS-CoV-2 (PCR) 07/09/22 07/09/22 07/09/22 03:15 03:15 03:15 WBC 4.6 RBC 4.80 Hgb 13.3 L Hct 38.5 L MCV 80.2 MCH 27.6 MCHC 34.4 RDW 13.0 Plt Count 205 Neut % (Auto) 44.6 L Lymph % (Auto) 43.8 H Redwood % (Auto) 8.3 Eos % (Auto) 2.7 Baso % (Auto) 0.6 Neut # (Auto) 2100 Lymph # (Auto) 2000 [place]wood # (Auto) 400 Eos # (Auto) 100 Baso # (Auto) 0 PT 10.5 INR 0.9 VBG pH VBG pCO2 VBG pO2 VBG HCO3 VBG Total CO2 VBG O2 Saturation VBG Base Excess Sodium 135 L Potassium 3.2 L Chloride 100 Carbon Dioxide 26 BUN 12 Creatinine 0.52 L Estimated GFR > 60 BUN/Creatinine Ratio 23.1 H Glucose 182 H Hemoglobin A1c Calcium 8.5 Phosphorus Magnesium 1.9 Total Bilirubin 0.3 AST 32 ALT 24 Alkaline Phosphatase 50 Troponin I NT-Pro-B Natriuret Pep Total Protein 6.6 Albumin 3.7 Globulin 2.9 Albumin/Globulin Ratio 1.3 Triglycerides 1116 H Cholesterol 260 H LDL Cholesterol, Calc TNP HDL Cholesterol 24 L Lipase TSH Urine RBC Urine WBC Ur Squamous Epith Cells Urine Bacteria Ur Culture Indicated? Nasal Screen MRSA (PCR) Salicylates U Opiates 300ng/mL cut Ur Oxycodone Screen Urine Methadone Screen Ur Barbiturates Screen U Tricyclic Antidepress Ur Phencyclidine Scrn Ur Amphetamines Screen U Methamphetamines Scrn Ur MDMA Scrn (Ecstasy) U Benzodiazepines Scrn Urine Cocaine Screen U Marijuana (THC) Screen Ketones 1.46 H SARS-CoV-2 (PCR) 07/09/22 07/09/22 03:15 03:15 WBC RBC Hgb Hct MCV MCH MCHC RDW Plt Count Neut % (Auto) Lymph % (Auto) Redwood % (Auto) Eos % (Auto) Baso % (Auto) Neut # (Auto) Lymph # (Auto) [place] # (Auto) Eos # (Auto) Baso # (Auto) PT INR VBG pH VBG pCO2 VBG pO2 VBG HCO3 VBG Total CO2 VBG O2 Saturation VBG Base Excess Sodium Potassium Chloride Carbon Dioxide BUN Creatinine Estimated GFR BUN/Creatinine Ratio Glucose Hemoglobin A1c Calcium Phosphorus Magnesium Total Bilirubin AST ALT Alkaline Phosphatase Troponin I < 0.012 NT-Pro-B Natriuret Pep Total Protein Albumin Globulin Albumin/Globulin Ratio Triglycerides Cholesterol LDL Cholesterol, Calc HDL Cholesterol Lipase TSH 3.19 Urine RBC Urine WBC Ur Squamous Epith Cells Urine Bacteria Ur Culture Indicated? Nasal Screen MRSA (PCR) Salicylates U Opiates 300ng/mL cut Ur Oxycodone Screen Urine Methadone Screen Ur Barbiturates Screen U Tricyclic Antidepress Ur Phencyclidine Scrn Ur Amphetamines Screen U Methamphetamines Scrn Ur MDMA Scrn (Ecstasy) U Benzodiazepines Scrn Urine Cocaine Screen U Marijuana (THC) Screen Ketones SARS-CoV-2 (PCR) Assessment & Plan Assessment & Plan narrative: Miguel Ángel Segovia is a 32-year-old male with a history of GERD, sent to ED from the [employer] [facility] for evaluation of new onset diabetes.? Patient admitted for new onset diabetes, hyperglycemia in DKA.? 1. 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 -sodium 135, chloride 97, creatinine 0.64, initial glucose 639, A1c> 14%, ketones 3.13, lipase 379, UA was negative, initial anion gap 18. -endorses drinking 2 sodas per night, an approximately 6-8 small glasses of whiskey per week, 1ppd smoker times 16 years recently changed to vaping. -patient admitted under diabetes protocol, admitted to ICU observational status for insulin drip-monitor for respiratory and or cardiac arrest. -DKA protocol -ordered magnesium, TSH, phosphorus, urine ketones, serum osmolality, troponin, salicylate -BNP q.4 hours while on drip -repeat VBG is in a.m. -diabetes education provided, risk stratification -recommend referral to diabetes education, follow-up with PCP July 14, 2022 appointment -initiate 20 units Lantus b.i.d. while in hospital, continue 20 units Lantus at bedtime upon discharge. -patient will also need prescriptions for Accu-Chek, Lantus 2. Tobacco abuse, acute on chronic, present on admission -education regarding tobacco cessation provided 3. Alcohol use, acute on chronic, present on admission -patient education regarding alcohol and diabetes, and alcohol cessation 4. GERD, chronic, present on admission -continue PPI 5. Overweight, acute on chronic, present on admission -as evidence by BMI of 28.5 -dietary consult ordered regarding diabetes, dietary lifestyle exercise and weight loss changes. Code status:Full Surrogate decision maker: Dillan HALL PCR:Negative DVT/VTE prophylaxis:Lovenx & SCD's Disposition: Patient admitted for observation to the ICU for acute care management of DKA, in the setting of acute hyperglycemia new onset diabetes 1.5 decompensation, to prevent complications of mortality and morbidity. I have utilized all available immediate resources to obtain, update, or review the patient's current medications. I confirmed that the patient's advanced care plan is present, Code status is documented and/or surrogate decision maker is listed in the patient's medical record. Time Spent With Patient Critical Care time: I spent a total of [] minutes of critical care time on this patient's care today; this time is exclusive of procedural time.
--- NOTE | 2022-07-09 07:13 | P.DS_ITS ---
History of Present Illness History of Present Illness Date Patient Seen: 07/09/22 Time Patient Seen: 09:00 Chief complaint: sent by , lethargic, urine test was bad Narrative: Miguel Ángel Segovia is a 32-year-old male with a history of GERD, sent to ED from the [facility] for evaluation of new onset diabetes.? Patient states in the past year has had polyuria,? polydipsia, fatigue, nocturia 3-4 times, weight loss of 20 lb with exercise intentional..? No prior history of diabetes.? No recent illness cough cold congestion fever chills.? No altered mental status.? No nausea vomiting diarrhea.? No fever or chills, body aches, denies chest pain, shortness breast, hematemesis, hematuria, changes in bowel, headache, changes in vision, weakness.? Patient states that he works nights in the [employer] endorses drinking 2 sodas per night, an approximately 6-8 glasses of whiskey per week, a smoker times 16 years recently changed to vaping, has never had any previous medical issues other than sinus surgery and tonsillectomy, takes only [id number] PPI for GERD. Patient's vitals upon admit were stable temp 97.7?, BP 134/88, HR 94, R 20, O2 saturation 96% on room air.? Patient's ABGs pH 7.38, pCO2 44.9, 0252, bicarb 26, CO2 28, O2 86, base excess 1.0.? Patient's CBC was WNL, sodium 135, chloride 97, creatinine 0.64, initial glucose 639, A1c> 14%, ketones 3.13, lipase 379, UA was negative, initial anion gap 18.? Patient was in no acute distress and was stable admitted for new onset diabetes DKA. Discharge Providers Provider Date of admission: 07/08/22 23:43 Discharge Date: 07/09/22 Primary care physician: Garland TEJEDA Provider Consults: 07/08/22 22:22 Consult to Dietitian, Adult Routine Comment: Reason For Exam: [place] DM-DKA 07/08/22 22:23 Consult to Discharge Planning Routine Comment: [place] DM-DKA Consult to Tele-contract negotiator Routine Comment: Consulting Provider: [facility] [employer] Reason for consultation: [employer] Has provider been notified: No Discharge provider: Fuad Holguin DO Summary Hospital Course Discharge Diagnosis: 1. New onset diabetes, hyperglycemia, in DKA, acute, present on admission -past year has had polyuria,? polydipsia, fatigue, nocturia 3-4 times, weight loss of 20 lb -suspect that this is diabetes type 1.5 onset with exacerbating factors of alcohol intake. -sodium 135, chloride 97, creatinine 0.64, initial glucose 639, A1c> 14%, ketones 3.13, lipase 379, UA was negative, initial anion gap 18. -endorses drinking 2 sodas per night, an approximately 6-8 small glasses of whiskey per week, 1ppd smoker times 16 years recently changed to vaping. -TSH normal -BNP q.4 hours while on drip -follow-up with PCP and diabetes education on [facility] already arranged by patient -initiate 20 units Lantus b.i.d. at 0.5 units/kg bodyweight dosing -sent script for glucometer at [facility] 2. Tobacco abuse, acute on chronic, present on admission -education regarding tobacco cessation provided 3. Alcohol use, acute on chronic, present on admission -patient education regarding alcohol and diabetes, and alcohol cessation 4. GERD, chronic, present on admission -continue PPI 5. Overweight, acute on chronic, present on admission -as evidence by BMI of 28.5 -dietary consult ordered regarding diabetes, dietary lifestyle exercise and weight loss changes. 6. Hypertriglyceridemia -1116 on lipid panel -will discuss starting lipid lowering agents with PCP -discussed diet and to avoid fatty foods Hospital Course: Admitted for DKA with gap of 18, BG 639, positive ketones and bicarb 20. A1c >14%. Likely new onset type 1 diabetes. Patient was on insulin drip overnight then weaned off to lantus 20u BID. Scripts were sent for this as well as a home glucometer. Triglyceride levels found to be 1116. He will f/u with his PCP on the [facility] for his diabetes, high triglycerides and endocrinology referral. Counseled to improve his diet and avoid fatty foods. Time Spent with Patient Time spent: Greater than 30 minutes Exam Vital Signs (past 8 hours): - 07/09/22 00:21 07/09/22 01:07 07/09/22 00:15 Temperature 97.5 F L Pulse Rate 72 95 H 91 H Respiratory Rate 20 34 H 19 Blood Pressure 109/69 129/75 120/83 Pulse Oximetry 99 97 97 Oxygen Delivery Method Room Air 07/09/22 00:30 07/09/22 04:00 Temperature 97.3 F L Pulse Rate 90 Respiratory Rate 15 Blood Pressure 108/64 Pulse Oximetry 97 Oxygen Delivery Method Room Air Oxygen Delivery Method Room Air Narrative Exam Narrative: GEN: no acute distress, somewhat anxious HEENT: moist mucous membranes, PERRL NECK: trachea midline, no JVD CV: regular rate and rhythm, no murmurs PULM: clear bilaterally ABD: soft, nontender, nondistended, no organomegaly EXT: warm and well perfused with no edema NEURO: awake, alert, oriented, no focal deficits Objective Labs Result Diagrams: 07/09/22 03:15 07/09/22 03:15 Labs: Laboratory Results - last 24 hr 07/08/22 07/08/22 07/08/22 17:29 17:47 17:47 WBC 4.4 L RBC 5.41 Hgb 15.8 Hct 44.1 MCV 81.4 MCH 29.2 MCHC 35.8 RDW 12.7 Plt Count 256 Neut % (Auto) 48.2 L Lymph % (Auto) 41.1 H [place] % (Auto) 7.5 Eos % (Auto) 2.4 Baso % (Auto) 0.8 Neut # (Auto) 2100 Lymph # (Auto) 1800 [place] # (Auto) 300 Eos # (Auto) 100 Baso # (Auto) 0 PT INR VBG pH VBG pCO2 VBG pO2 VBG HCO3 VBG Total CO2 VBG O2 Saturation VBG Base Excess Sodium 131 L Potassium 4.4 Chloride 93 L Carbon Dioxide 20 L BUN 14 Creatinine 0.65 L Estimated GFR > 60 BUN/Creatinine Ratio 21.5 Glucose 618 H* Hemoglobin A1c > 14.0 H Calcium 9.0 Phosphorus Magnesium Total Bilirubin 0.6 AST 40 ALT 29 Alkaline Phosphatase 77 Troponin I NT-Pro-B Natriuret Pep Total Protein 7.9 Albumin 4.5 Globulin 3.4 Albumin/Globulin Ratio 1.3 Triglycerides Cholesterol LDL Cholesterol, Calc HDL Cholesterol Lipase 379 H TSH Urine RBC Urine WBC Ur Squamous Epith Cells Urine Bacteria Ur Culture Indicated? Nasal Screen MRSA (PCR) Salicylates U Opiates 300ng/mL cut Ur Oxycodone Screen Urine Methadone Screen Ur Barbiturates Screen U Tricyclic Antidepress Ur Phencyclidine Scrn Ur Amphetamines Screen U Methamphetamines Scrn Ur MDMA Scrn (Ecstasy) U Benzodiazepines Scrn Urine Cocaine Screen U Marijuana (THC) Screen Ketones 3.13 H SARS-CoV-2 (PCR) 07/08/22 07/08/22 07/08/22 17:50 18:06 21:15 WBC RBC Hgb Hct MCV MCH MCHC RDW Plt Count Neut % (Auto) Lymph % (Auto) [place] % (Auto) Eos % (Auto) Baso % (Auto) Neut # (Auto) Lymph # (Auto) [place] # (Auto) Eos # (Auto) Baso # (Auto) PT INR VBG pH 7.38 VBG pCO2 44.9 L VBG pO2 52 H VBG HCO3 26 VBG Total CO2 28 VBG O2 Saturation 86 H VBG Base Excess 1.0 Sodium 135 L Potassium 4.2 Chloride 97 L Carbon Dioxide 22 BUN 13 Creatinine 0.64 L Estimated GFR > 60 BUN/Creatinine Ratio 20.3 Glucose 487 H* Hemoglobin A1c Calcium 8.7 Phosphorus Magnesium Total Bilirubin 0.8 AST 41 ALT 29 Alkaline Phosphatase 64 Troponin I NT-Pro-B Natriuret Pep Total Protein 7.8 Albumin 4.4 Globulin 3.4 Albumin/Globulin Ratio 1.3 Triglycerides Cholesterol LDL Cholesterol, Calc HDL Cholesterol Lipase TSH Urine RBC None seen Urine WBC None seen Ur Squamous Epith Cells None seen Urine Bacteria None seen Ur Culture Indicated? Cult not indicated Nasal Screen MRSA (PCR) Salicylates U Opiates 300ng/mL cut Ur Oxycodone Screen Urine Methadone Screen Ur Barbiturates Screen U Tricyclic Antidepress Ur Phencyclidine Scrn Ur Amphetamines Screen U Methamphetamines Scrn Ur MDMA Scrn (Ecstasy) U Benzodiazepines Scrn Urine Cocaine Screen U Marijuana (THC) Screen Ketones SARS-CoV-2 (PCR) 07/08/22 07/08/22 07/08/22 22:36 23:05 23:05 WBC RBC Hgb Hct MCV MCH MCHC RDW Plt Count Neut % (Auto) Lymph % (Auto) [place] % (Auto) Eos % (Auto) Baso % (Auto) Neut # (Auto) Lymph # (Auto) [place] # (Auto) Eos # (Auto) Baso # (Auto) PT INR VBG pH VBG pCO2 VBG pO2 VBG HCO3 VBG Total CO2 VBG O2 Saturation VBG Base Excess Sodium Potassium Chloride Carbon Dioxide BUN Creatinine Estimated GFR BUN/Creatinine Ratio Glucose Hemoglobin A1c Calcium Phosphorus Magnesium 1.9 Total Bilirubin AST ALT Alkaline Phosphatase Troponin I NT-Pro-B Natriuret Pep Total Protein Albumin Globulin Albumin/Globulin Ratio Triglycerides Cholesterol LDL Cholesterol, Calc HDL Cholesterol Lipase TSH Urine RBC Urine WBC Ur Squamous Epith Cells Urine Bacteria Ur Culture Indicated? Nasal Screen MRSA (PCR) Salicylates < 1.0 U Opiates 300ng/mL cut Ur Oxycodone Screen Urine Methadone Screen Ur Barbiturates Screen U Tricyclic Antidepress Ur Phencyclidine Scrn Ur Amphetamines Screen U Methamphetamines Scrn Ur MDMA Scrn (Ecstasy) U Benzodiazepines Scrn Urine Cocaine Screen U Marijuana (THC) Screen Ketones SARS-CoV-2 (PCR) Negative 07/08/22 07/08/22 07/08/22 23:05 23:05 23:05 WBC RBC Hgb Hct MCV MCH MCHC RDW Plt Count Neut % (Auto) Lymph % (Auto) [place] % (Auto) Eos % (Auto) Baso % (Auto) Neut # (Auto) Lymph # (Auto) [place] # (Auto) Eos # (Auto) Baso # (Auto) PT INR VBG pH VBG pCO2 VBG pO2 VBG HCO3 VBG Total CO2 VBG O2 Saturation VBG Base Excess Sodium Potassium Chloride Carbon Dioxide BUN Creatinine Estimated GFR BUN/Creatinine Ratio Glucose Hemoglobin A1c Calcium Phosphorus 3.2 Magnesium Total Bilirubin AST ALT Alkaline Phosphatase Troponin I 0.016 NT-Pro-B Natriuret Pep 15 Total Protein Albumin Globulin Albumin/Globulin Ratio Triglycerides Cholesterol LDL Cholesterol, Calc HDL Cholesterol Lipase TSH Urine RBC Urine WBC Ur Squamous Epith Cells Urine Bacteria Ur Culture Indicated? Nasal Screen MRSA (PCR) Salicylates U Opiates 300ng/mL cut Ur Oxycodone Screen Urine Methadone Screen Ur Barbiturates Screen U Tricyclic Antidepress Ur Phencyclidine Scrn Ur Amphetamines Screen U Methamphetamines Scrn Ur MDMA Scrn (Ecstasy) U Benzodiazepines Scrn Urine Cocaine Screen U Marijuana (THC) Screen Ketones SARS-CoV-2 (PCR) 07/08/22 07/08/22 07/09/22 23:05 23:42 00:30 WBC RBC Hgb Hct MCV MCH MCHC RDW Plt Count Neut % (Auto) Lymph % (Auto) [place] % (Auto) Eos % (Auto) Baso % (Auto) Neut # (Auto) Lymph # (Auto) [place] # (Auto) Eos # (Auto) Baso # (Auto) PT INR VBG pH VBG pCO2 VBG pO2 VBG HCO3 VBG Total CO2 VBG O2 Saturation VBG Base Excess Sodium 138 Potassium 3.7 Chloride 102 Carbon Dioxide 25 BUN 11 Creatinine 0.59 L Estimated GFR > 60 BUN/Creatinine Ratio 18.6 Glucose 227 H D Hemoglobin A1c Calcium 8.5 Phosphorus Magnesium Total Bilirubin 0.5 AST 36 ALT 25 Alkaline Phosphatase 55 Troponin I NT-Pro-B Natriuret Pep Total Protein 7.1 Albumin 4.0 Globulin 3.1 Albumin/Globulin Ratio 1.3 Triglycerides Cholesterol LDL Cholesterol, Calc HDL Cholesterol Lipase TSH Urine RBC Urine WBC Ur Squamous Epith Cells Urine Bacteria Ur Culture Indicated? Nasal Screen MRSA (PCR) Negative for mrsa Salicylates U Opiates 300ng/mL cut Negative Ur Oxycodone Screen Negative Urine Methadone Screen Negative Ur Barbiturates Screen Negative U Tricyclic Antidepress Negative Ur Phencyclidine Scrn Negative Ur Amphetamines Screen Negative U Methamphetamines Scrn Negative Ur MDMA Scrn (Ecstasy) Negative U Benzodiazepines Scrn Negative Urine Cocaine Screen Negative U Marijuana (THC) Screen Negative Ketones SARS-CoV-2 (PCR) 07/09/22 07/09/22 07/09/22 03:15 03:15 03:15 WBC 4.6 RBC 4.80 Hgb 13.3 L Hct 38.5 L MCV 80.2 MCH 27.6 MCHC 34.4 RDW 13.0 Plt Count 205 Neut % (Auto) 44.6 L Lymph % (Auto) 43.8 H [place] % (Auto) 8.3 Eos % (Auto) 2.7 Baso % (Auto) 0.6 Neut # (Auto) 2100 Lymph # (Auto) 2000 [place] # (Auto) 400 Eos # (Auto) 100 Baso # (Auto) 0 PT 10.5 INR 0.9 VBG pH VBG pCO2 VBG pO2 VBG HCO3 VBG Total CO2 VBG O2 Saturation VBG Base Excess Sodium 135 L Potassium 3.2 L Chloride 100 Carbon Dioxide 26 BUN 12 Creatinine 0.52 L Estimated GFR > 60 BUN/Creatinine Ratio 23.1 H Glucose 182 H Hemoglobin A1c Calcium 8.5 Phosphorus Magnesium 1.9 Total Bilirubin 0.3 AST 32 ALT 24 Alkaline Phosphatase 50 Troponin I NT-Pro-B Natriuret Pep Total Protein 6.6 Albumin 3.7 Globulin 2.9 Albumin/Globulin Ratio 1.3 Triglycerides 1116 H Cholesterol 260 H LDL Cholesterol, Calc TNP HDL Cholesterol 24 L Lipase TSH Urine RBC Urine WBC Ur Squamous Epith Cells Urine Bacteria Ur Culture Indicated? Nasal Screen MRSA (PCR) Salicylates U Opiates 300ng/mL cut Ur Oxycodone Screen Urine Methadone Screen Ur Barbiturates Screen U Tricyclic Antidepress Ur Phencyclidine Scrn Ur Amphetamines Screen U Methamphetamines Scrn Ur MDMA Scrn (Ecstasy) U Benzodiazepines Scrn Urine Cocaine Screen U Marijuana (THC) Screen Ketones 1.46 H SARS-CoV-2 (PCR) 07/09/22 07/09/22 03:15 03:15 WBC RBC Hgb Hct MCV MCH MCHC RDW Plt Count Neut % (Auto) Lymph % (Auto) [place] % (Auto) Eos % (Auto) Baso % (Auto) Neut # (Auto) Lymph # (Auto) [place] # (Auto) Eos # (Auto) Baso # (Auto) PT INR VBG pH VBG pCO2 VBG pO2 VBG HCO3 VBG Total CO2 VBG O2 Saturation VBG Base Excess Sodium Potassium Chloride Carbon Dioxide BUN Creatinine Estimated GFR BUN/Creatinine Ratio Glucose Hemoglobin A1c Calcium Phosphorus Magnesium Total Bilirubin AST ALT Alkaline Phosphatase Troponin I < 0.012 NT-Pro-B Natriuret Pep Total Protein Albumin Globulin Albumin/Globulin Ratio Triglycerides Cholesterol LDL Cholesterol, Calc HDL Cholesterol Lipase TSH 3.19 Urine RBC Urine WBC Ur Squamous Epith Cells Urine Bacteria Ur Culture Indicated? Nasal Screen MRSA (PCR) Salicylates U Opiates 300ng/mL cut Ur Oxycodone Screen Urine Methadone Screen Ur Barbiturates Screen U Tricyclic Antidepress Ur Phencyclidine Scrn Ur Amphetamines Screen U Methamphetamines Scrn Ur MDMA Scrn (Ecstasy) U Benzodiazepines Scrn Urine Cocaine Screen U Marijuana (THC) Screen Ketones SARS-CoV-2 (PCR) [facility] Medical History (Updated 07/09/22 @ 05:42 by JOSTIN Rosado) GERD (gastroesophageal reflux disease) Surgical History (Updated 07/09/22 @ 05:42 by JOSTIN Rosado) History of sinus surgery History of tonsillectomy Family History Mother Liver failure Aunt Cancer Social History household members: none alcohol intake: current Discharge Plan Discharge Plan Patient Disposition: Home Provider Discharge Comment: You were admitted due to very high blood sugars and an A1c of >14%. This likely means you have type 1 diabetes and will need to be on insulin. I've sent prescriptions for insulin to use twice daily and a glucometer to check your blood sugar. The range you want it in when you check it morning and night is between 80-180. If you are lower than this, then drink some juice and lower your insulin dose gradually by 2 units at a time until you dial in what dose you need to keep you in that range. Discharge orders & Medications Prescriptions: New insulin glargine [Lantus Solostar U-100 Insulin] 100 unit/mL (3 mL) insulin pen 20 unit SUBCUT BID 30 Days Qty: 12 0RF (DME) blood-glucose meter Kit See Rx Instructions .Route Qty: 1 0RF Rx Instructions: As directed Continued pantoprazole 20 mg Tablet,Delayed Release (Dr/Ec) 20 mg PO DAILY Follow up/Referrals: Garland Kendrick [Primary Care Provider] - Visit Report/Discharge Packet Instructions: High Triglycerides, DI for Diabetes Type 1 -- Adult, DI for Diabetic Ketoacidosis Discharge Data Primary Care Provider: Garland Kendrick Attending Provider: Miley Avila
[2022-07-09 07:52] VITALS: BP 108/77; PULSE 79; RESP 13; TEMP 36.3; O2SAT 97
[2022-07-09] MEDS: INSULIN LISPRO 100 UNIT/ML 3ML VIAL SUBCUT (08:23)
[2022-07-09] MEDS: PANTOPRAZOLE DR 20 MG TABLET PO (08:25)
--- NOTE | 2022-07-09 11:05 | DIET.CONS2 ---
Dietary Inpatient Consultation Note Admission Date: 07/08/2022 23:43 Nutrition Percent Meal Consumed 100% 07/09/22 09:30 Assessment: Pt is a 32 yo M admitted for evaluation of new onset diabetes DKA. Referred to RD for DM education. Pt not seen by RD as Hospitalist reports pt will be d/c?ed today and has a scheduled DM education apt on [facility] on 07/10. RN reports pt is anxious for d/c and is concerned that DM dx may affect active duty [employer] status. RD unable to provide a glucometer or CGM prior to d/c. H&P reports pt states previous hx of polyuria, polydipsia, fatigue, nocturia 3-4 times, intentional wt loss of 20lb x1y with no prior DM hx. ICU orders include Myxredlin Drip Premix 100 units in 100 mL @ 6 mL/hr IV and 20 units Glargine pen BID, Humalog ACHS, and CHO consistent diet. Labs include A1C >14.0%, BG range 182-618 mg/DL x 24hr, ketones 1.46 mmol/L. Fingersticks range 90-256 mg/dL. Diagnosis: Altered nutrition-related lab values r/t endocrine dysfunction aeb A1C >14.0%, BG range 182-618 mg/DL x 24h, ketones 1.46 mmol/L. Intervention: No nutrition intervention at this time. Pt to receive DM education on [facility]. Electronically Signed by: Karen Mendoza 07/09/22 11:05 Clinical Dietitian [address] [id number]
--- NOTE | 2022-07-09 12:43 | CM.IDA ---
Initial Discharge Assessment Note: 32 year old single male from [place] admitted yesterday with DKA, new onset diabetes. UA negative. He works at [employer]. Dr Holguin just in to see him this morning for discharge instructions. Plan: Discharge home, patient will transport self. Understands discharge instructions. Cintia Duron RN/DCP
[2022-07-10 10:36] LABS: Osmolality, Serum 308 mOsmol/kg (275-295)
== END 2022-07-09 10:25 | disposition home or self-care (01) ==
LOC: ED 22:42 → AC 23:44 → ICU 07-09 00:17
PROVIDERS: Emergency Medicine; Admitting Provider Nurse Practitioner Family; Emergency Provider Emergency Medicine; Visit Provider Nurse Practitioner Family
DX: E11.65 Type 2 diabetes mellitus with hyperglycemia (principal); Z72.0 Tobacco use; K21.9 Gastro-esophageal reflux disease without esophagitis; E66.3 Overweight; Z68.28 Body mass index [BMI] 28.0-28.9, adult; E78.1 Pure hyperglyceridemia
CPT/HCPCS: 36415; 80053; 80061; 80305; 80329; 81003; 81015; 82009; 82805; 82962; 83036; 83690; 83735; 83880; 83930; 84100; 84443; 84484; 85025; 85610; 87040; 87086; 87635; 87797; 96361; 96365; 96366; 96372; 96375; 99284; 99285; C9803; G0378; G0480; J1815; J2060